=== PATIENT | male | born 1950 | race Asian ===

== ENCOUNTER 2021-11-14 06:55 | Inpatient (IN) | payer BC, OTHER ==
[~2021-11-14] VITALS: Ht 170.2 cm; Wt 64.9 kg
[2021-11-14] MEDS ORDERED: VANCOMYCIN 1 GM in IV D5W 250 ML IV ONE (08:00)
[2021-11-14] MEDS ORDERED: CEFEPIME 1 GM in IV D5W 50 ML IV ONE (08:00)
[2021-11-14] MEDS ORDERED: IV NS 0.9% 1,000 ML IV ONE ×2 (08:00→09:30)
[2021-11-14 08:01] LABS: BASOPHILS # (AUTO) 0.1 K/uL (0.0-0.2); BASOPHILS % (AUTO) 0.4 % (0.0-2.0); EOSINOPHILS % (AUTO) 5.7 % (0.0-6.0); HEMATOCRIT 35 % (39-51); HEMOGLOBIN 11.8 g/dL (13.5-17.5); LYMPHOCYTES # (AUTO) 0.9 K/uL (0.8-4.8); LYMPHOCYTES % (AUTO) 7.6 % (20.0-44.0); MEAN CORPUSCULAR HGB CONC 34 g/dl (31.0-36.0); MEAN CORPUSCULAR VOLUME 84 fL (80-96); MONOCYTES # (AUTO) 1.5 K/uL (0.1-1.30); MONOCYTES % (AUTO) 11.9 % (2.0-12.0); NEUTROPHILS # (AUTO) 9.2 K/uL (1.8-8.9); NEUTROPHILS % (AUTO) 74.4 % (43.0-81.0); PLATELET COUNT (AUTO) 85 K/uL (150-450); RED BLOOD CELL COUNT(AUTO) 4.17 MIL/uL (4.5-6.0); WHITE BLOOD COUNT (AUTO) 12.3 K/uL (4.3-11.0)
[2021-11-14 08:10] LABS: CALCIUM, SERUM 8.9 mg/dL (8.5-10.1); CARBON DIOXIDE 23 mmol/L (21-32); CHLORIDE 97 mmol/L (98-107); CREATININE 2.7 mg/dL (0.6-1.3); GLUCOSE 136 mg/dL (74-106); POTASSIUM 3.9 mmol/L (3.5-5.1); SODIUM SERUM 132 mmol/L (136-145); UREA NITROGEN, BLOOD 42 mg/dL (7-18)
[2021-11-14 08:24] LABS: ALANINE AMINOTRANSFERASE 68 U/L (12-78); ALBUMIN 3.2 g/dL (3.4-5.0); ALKALINE PHOSPHATASE 86 U/L (46-116); ASPARTATE AMINOTRANSFERASE 44 U/L (15-37); BILIRUBIN,DIRECT 0.2 mg/dL (0.0-0.2); BILIRUBIN,TOTAL 0.5 mg/dL (0.2-1.0); TOTAL PROTEIN, SERUM 7.2 g/dL (6.4-8.2)
--- NOTE | 2021-11-14 08:48 | NUR ---
IV LINE ESTABLISHED ON RAC #20, BLOOD DRAWN AND SENT TO LAB
--- NOTE | 2021-11-14 08:50 | NUR ---
URINE SAMPLE COLLECTED.
[2021-11-14] MEDS ORDERED: LEVO50TA8 PO (09:04)
[2021-11-14] MEDS ORDERED: ASPI-1420 PO (09:04)
[2021-11-14] MEDS ORDERED: METO25TA3 PO (09:04)
[2021-11-14] MEDS ORDERED: EZET10TA32 PO (09:04)
[2021-11-14] MEDS ORDERED: VALS1TAB8 PO (09:04)
[2021-11-14] MEDS ORDERED: METF-440 PO (09:04)
[2021-11-14] MEDS ORDERED: ROSU40TA23 PO (09:04)
[2021-11-14] MEDS ORDERED: FAMO20TA8 PO (09:04)
--- NOTE | 2021-11-14 09:20 | NUR ---
SPOKE W/ LAB, URINE SAMPLE NOT ENOUGH; PT UNABLE TO PROVIDE URINE AT THIS TIME.
[2021-11-14 10:19] LABS: CREATININE 2.5 mg/dL (0.6-1.3); POTASSIUM 3.6 mmol/L (3.5-5.1)
--- NOTE | 2021-11-14 10:52 | NUR ---
COVID SWAB AND URINE SAMPLE COLLECTED AND SENT TO LAB
[2021-11-14 11:47] LABS: BAND % (MANUAL) 1 % (0.0-5.0); EOSINOPHILS % (MANUAL) 3 % (0-4); LYMPHOCYTES % (MANUAL) 7 % (16-48); MONOCYTES % (MANUAL) 10 % (0-11.0); NEUTROPHILS % (MANUAL) 79 (42-76)
[2021-11-14 12:02] LABS: BILIRUBIN,URINE NEGATIVE (NEGATIVE); COLOR,URINE YELLOW (YELLOW); LEUKOCYTE ESTERASE ,URINE NEGATIVE (NEGATIVE); NITRITE, URINE NEGATIVE (NEGATIVE); PROTEIN,URINE NEGATIVE (NEGATIVE); UGLUCOSE NEGATIVE (NEGATIVE); UROBILINOGEN,URINE 0.2 EU/dL (0.2)
--- NOTE | 2021-11-14 12:48 | NUR ---
AYSHA FROM [facility]. GAVE VERBAL AUTHORIZATION.
[2021-11-14 13:08] LABS: BACTERIA,URINE Few /HPF (None Seen); COARSE GRANULAR CASTS,URINE Rare /LPF (None Seen); RBC,URINE 0-2 /HPF (0-2); SQUAMOUS EPITHELIAL CELL,UR Few /HPF (None Seen); WBC,URINE 0-2 /HPF (0-3)
[2021-11-14] MEDS ORDERED: MAGNESIUM HYDROXIDE 30 ML UDC PO PRN (13:30)
[2021-11-14] MEDS ORDERED: ONDANSETRON HCL/PF 4 MG/2 ML VIAL IVP PRN (13:30)
[2021-11-14] MEDS ORDERED: ASPIRIN 81 MG TAB.CHEW PO SCH (13:30)
[2021-11-14] MEDS ORDERED: ZOLPIDEM TARTRATE 5 MG TABLET PO PRN (13:30)
[2021-11-14] MEDS ORDERED: FAMOTIDINE (20 MG) 20 MG TABLET PO PRN (13:30)
[2021-11-14] MEDS ORDERED: Z GUARD REMEDY 4 OZ OINT TP PRN (13:30)
[2021-11-14] MEDS ORDERED: MAG HYDROX/AL HYDROX/SIMETH 30 ML UDC PO PRN (13:30)
[2021-11-14] MEDS ORDERED: DEXTROSE 50%-WATER 50 ML DISP.SYRIN IV PRN (13:30)
--- NOTE | 2021-11-14 13:56 | NUR ---
ROOM 111-1
--- NOTE | 2021-11-14 14:04 | NUR ---
PT REPORT GIVEN TO SHERRI SPRINGER; PATRICIA IS THE NURSE ASSIGNED TO PT
--- NOTE | 2021-11-14 15:00 | NUR ---
EXECUTIVE VP OPENING NOTE RECEIVED PATIENT FROM ER VIA DISHARDMITRY ACCOMPANIED BY 2 ER STAFF. ON ROOM AIR, BREATHING UNLABORED AND NOT IN ANY FORM OF DISTRESS. PATIENT WAS ORIENTED TO ROOM AND HOSPITAL POLICIES. INITIAL ASSESSMENTS DONE AND DOCUMENTED ACCORDINGLY. BED IS LOCKED IN LOWEST POSITION, 3 SIDE RAILS UP, CALL LIGHT WITHIN REACH. WILL CONTINUE TO MONITOR.
--- NOTE | 2021-11-14 15:09 | NUR ---
PT TRANSFERRED TO 111-1 VIA [facility] ACLS PROTOCOL. WARM HANDOFF GIVEN TO SHERRI GOMEZ
[2021-11-14 16:00] VITALS: BP 128/59
[2021-11-14] MEDS: BLOOD SUGAR DIAGNOSTIC 1 EACH STRIP VI SCH ×2 (17:43→21:37)
[2021-11-14] MEDS: INSULIN REGULAR, HUMAN 100 UNIT/ML 3 ML VIAL SQ PRN (17:46)
--- NOTE | 2021-11-14 19:01 | NUR ---
RN CLOSING NOTE PATIENT REMAINED STABLE THROUGHOUT SHIFT. TOLERATES ROOM AIR. DENIES CHEST PAIN, BREATHING UNLABORED AND NOT IN ANY FORM OF DISTRESS. RIGHT ANTECUBITAL IV REMAINS INTACT AND PATENT. ABLE TO MAKE NEEDS KNOWN. ALL HOSPITAL PRECAUTIONS IN PLACE. WILL ENDORSE TO IT CONSULTING MANAGER NURSE.
--- NOTE | 2021-11-14 19:42 | NUR ---
RN OPENING NOTES RECEIVED PT IN BED, AWAKE, WATCHING TV. AOx4, ABLE TO MAKE NEEDS KNOWN. ON RA AND TOLERATING WELL. NO SOB NOTED. NO S/SX OF RESPIRATORY DISTRESS NOTED. TELE MONITOR DETECTS V-PACING WITH RATE OF 71. IV ACCESS IN RAC #20G. IV IS INTACT, PATENT, AND FLUSHING WELL. SAFETY PRECAUTIONS IN PLACE: BED IN LOWEST, LOCKED POSITION, SIDERAILS UPx2, AND BRAKES ON. TABLE AND CALL LIGHT WITHIN REACH. ALL NEEDS MET AT THIS TIME.
[2021-11-14 20:00] VITALS: BP 98/65
[2021-11-14] MEDS: ACETAMINOPHEN 325 MG TABLET PO PRN (20:47)
[2021-11-14] MEDS: IV NS 0.9% 1,000 ML IV PRN (20:47)
--- NOTE | 2021-11-14 21:00 | NUR ---
RN NOTES PATIENT HAS TEMPERATURE OF 101.1. ADMINISTERED TYLENOL AND PROVIDED ICE BAGS.
[2021-11-14] MEDS: ATORVASTATIN 10 MG TABLET PO SCH (21:34)
[2021-11-14] MEDS: *INSULIN REGULAR(HUMULIN R)HUM 100 UNIT/ML VIAL SQ PRN (21:37)
[2021-11-15] VITALS: BP 93/52
--- NOTE | 2021-11-15 06:39 | NUR ---
RN CLOSING NOTES PT IN BED, ASLEEP, AWAKENS TO VERBAL STIMULI. AOx4, ABLE TO MAKE NEEDS KNOWN. ON RA AND TOLERATING WELL. NO SOB NOTED. NO S/SX OF RESPIRATORY DISTRESS NOTED. TELE MONITOR DETECTS V-PACING WITH RATE OF 71. IV ACCESS IN RAC #20G RUNNING NS @ 75 ML/HR. ALL ORDERS CARRIED OUT. ALL NEEDS MET. PT KEPT CLEAN AND DRY. SAFETY PRECAUTIONS IN PLACE: BED IN LOWEST, LOCKED POSITION, SIDERAILS UPx2, AND BRAKES ON. TABLE AND CALL LIGHT WITHIN REACH. WILL ENDORSE TO ONCOMING SHIFT FOR MARCO.
[2021-11-15 06:42] LABS: BASOPHILS % (AUTO) 0.3 % (0.0-2.0); EOSINOPHILS % (AUTO) 7.6 % (0.0-6.0); HEMATOCRIT 35 % (39-51); HEMOGLOBIN 11.8 g/dL (13.5-17.5); LYMPHOCYTES # (AUTO) 1.2 K/uL (0.8-4.8); LYMPHOCYTES % (AUTO) 11.4 % (20.0-44.0); MEAN CORPUSCULAR HGB CONC 34 g/dl (31.0-36.0); MEAN CORPUSCULAR VOLUME 85 fL (80-96); MONOCYTES # (AUTO) 1.4 K/uL (0.1-1.30); NEUTROPHILS # (AUTO) 7.3 K/uL (1.8-8.9); NEUTROPHILS % (AUTO) 67.7 % (43.0-81.0); PLATELET COUNT (AUTO) 96 K/uL (150-450); RED BLOOD CELL COUNT(AUTO) 4.12 MIL/uL (4.5-6.0); WHITE BLOOD COUNT (AUTO) 10.8 K/uL (4.3-11.0)
[2021-11-15 07:14] LABS: CALCIUM, SERUM 8.8 mg/dL (8.5-10.1); MAGNESIUM 2.2 mg/dL (1.8-2.4); PHOSPHORUS 2.6 mg/dL (2.5-4.9); POTASSIUM 3.5 mmol/L (3.5-5.1)
--- NOTE | 2021-11-15 07:20 | NUR ---
RN OPENING NOTES PATIENT RECEIVED IN BED. PATIENT IS VERBAL RESPONSIVE. PATIENT IS ALERT AND ORIENTED X4.PATIENT IS ON TELE MONITOR CURRENTLY VPACING. PATIENT HAS IV ACCESS ON RIGHT AC 20 GUAGE RUNNING NORMAL SALINE AT 75 ML/HR. NO SIGNS OF PAIN OR DISCOMFORT.PATIENT IS ON ROOM AIR. ALL SAFETY MEASURES IN PLACE, BED IN LOWEST, LOCKED POSITION, SIDERAILS UPx2, AND BRAKES ON. TABLE AND CALL LIGHT WITHIN REACH.
[2021-11-15] MEDS: BLOOD SUGAR DIAGNOSTIC 1 EACH STRIP VI SCH ×4 (07:53→21:49)
[2021-11-15] MEDS: CEFEPIME 2 GM in IV D5W 100 ML IV SCH (08:04)
[2021-11-15 08:36] VITALS: BP 99/63
--- NOTE | 2021-11-15 09:00 | NUR ---
DR. FRAIRE MADE ROUNDS. ASKED DR. FRAIRE IF OKAY TO CONTINUE ASPIRIN AND ZETIA. SAID OK TO GIVE
[2021-11-15] MEDS: ASPIRIN EC 81 MG TABLET.DR PO SCH (09:03)
[2021-11-15] MEDS: EZETIMIBE 10 MG TABLET PO SCH (09:03)
[2021-11-15 12:00] VITALS: BP 102/62
[2021-11-15] MEDS: INSULIN REGULAR, HUMAN 100 UNIT/ML 3 ML VIAL SQ PRN (12:17)
[2021-11-15] MEDS: IV NS 0.9% 1,000 ML IV PRN (14:08)
[2021-11-15 15:28] LABS: EOSINOPHILS % (MANUAL) 10 % (0-4); LYMPHOCYTES % (MANUAL) 10 % (16-48); MONOCYTES % (MANUAL) 10 % (0-11.0); NEUTROPHILS % (MANUAL) 70 (42-76)
[2021-11-15 16:00] VITALS: BP 108/69
[2021-11-15] MEDS: ACETAMINOPHEN 325 MG TABLET PO PRN (17:14)
--- NOTE | 2021-11-15 18:30 | NUR ---
PROVIDED UPDATES TO PATIENT .
--- NOTE | 2021-11-15 19:30 | NUR ---
EXPLORATION MANAGER OPENING NOTES RECEIVED PT AWAKE IN BED, A/O x4, ABLE TO MAKE NEEDS KNOWN. ON RA AND TOLERATING WELL. NO SOB NOTED. NO S/SX OF RESPIRATORY DISTRESS NOTED. PT ON CONNECTED TO TELE MONITOR DETECTS V-PACING WITH RATE OF 80. IV ACCESS IN RAC #20G INTACT, PATENT, AND FLUSHING WELL RUNNING NS AT 75 ML/HR. SAFETY PRECAUTIONS IN PLACE: BED IN LOWEST AND LOCKED POSITION, SIDERAILS UPx2. TABLE AND CALL LIGHT WITHIN REACH. FAMILY AT BEDSIDE, WILL CONTINUE TO MONITOR THROUGHOUT THE SHIFT.
--- NOTE | 2021-11-15 19:40 | NUR ---
RN CLOSING NOTE PATIENT IN BED. PATIENT IS VERBAL RESPONSIVE. PATIENT IS ALERT AND ORIENTED X4.PATINET HAS LANGUAGE BARRIER. PATIENT IS ON TELE MONITOR PATIENT HAS IV ACCESS ON RIGHT AC 20 GUAGE RUNNING NORMAL SALINE AT 75 ML/HR. NO SIGNS OF PAIN OR DISCOMFORT.PATIENT IS ON ROOM AIR. ALL NEEDS MET. PATIENT IS AMBULATORY. ALL SAFETY MEASURES IN PLACE, BED IN LOWEST, LOCKED POSITION, SIDERAILS UPx2, AND BRAKES ON. TABLE AND CALL LIGHT WITHIN REACH.
[2021-11-15 20:00] VITALS: BP 109/54
[2021-11-15] MEDS: ATORVASTATIN 10 MG TABLET PO SCH (21:49)
--- NOTE | 2021-11-15 22:00 | NUR ---
RN NOTE BS CHECKED AT 150 MG/DL, 2 UNITS OF INSULIN GIVEN PER SLIDING SCALE. WILL CONT TO MONITOR.
[2021-11-15] MEDS: *INSULIN REGULAR(HUMULIN R)HUM 100 UNIT/ML VIAL SQ PRN (22:24)
[2021-11-16] VITALS: BP 125/69
[2021-11-16] MEDS: ACETAMINOPHEN 325 MG TABLET PO PRN (00:07)
--- NOTE | 2021-11-16 00:07 | NUR ---
RN NOTE NOTED PT HAVING FEVER AT 100.3. TYLENOL GIVEN MD ORDER, COOLING MEASURES PROVIDED, WILL CONT TO MONITOR.
--- NOTE | 2021-11-16 01:00 | NUR ---
RN NOTE PT TEMPERATURE GOES DOWN AT 99.0. PT SLEEPING BUT EASILY AROUSABLE TO TOUCH AND VOICE.
[2021-11-16] MEDS: IV NS 0.9% 1,000 ML IV PRN (03:59)
[2021-11-16 04:00] VITALS: BP 121/65
--- NOTE | 2021-11-16 06:41 | NUR ---
BUTTER PRODUCTION SUPERVISOR CLOSING NOTES PT AWAKE IN BED, A/O x4, ABLE TO MAKE NEEDS KNOWN. ON RA TOLERATING WELL SATING 99%. NO SOB NOTED. NO S/SX OF RESPIRATORY DISTRESS NOTED. PT ON CONNECTED TO TELE MONITOR DETECTS V-PACING WITH RATE OF 81. IV ACCESS IN RAC #20G INTACT, PATENT, AND FLUSHING WELL RUNNING NS AT 75 ML/HR. ALL DUE MEDS GIVEN, KEPT DRY AND CLEAN, SAFETY PRECAUTIONS IN PLACE: BED IN LOWEST AND LOCKED POSITION, SIDERAILS UPx2. TABLE AND CALL LIGHT WITHIN REACH. WILL ENDORSE TO AM SHIFT NURSE FOR CONTINUITY OF CARE.
[2021-11-16 07:32] LABS: POTASSIUM 3.9 mmol/L (3.5-5.1)
--- NOTE | 2021-11-16 08:00 | NUR ---
EPIC KALEIDOSCOPE ANALYST NOTES PT AWAKE IN BED, A/O x4, ABLE TO MAKE NEEDS KNOWN. ON RA TOLERATING WELL SATING 97%. NO SOB NOTED. NO S/SX OF RESPIRATORY DISTRESS NOTED. PT ON CONNECTED TO TELE MONITOR AV PACING HR 80 ,IV ACCESS IN RAC #20G INTACT, PATENT, AND FLUSHING WELL RUNNING NS AT 75 ML/HR. ALL DUE ME KEPT DRY AND CLEAN, SAFETY PRECAUTIONS IN PLACE, BED IN LOWEST AND LOCKED POSITION CALL LIGHT WITHIN REACH. WILL CON TO MONITOR SEEN BY DR FRAIRE, WILL F\U
[2021-11-16] MEDS: CEFEPIME 2 GM in IV D5W 100 ML IV SCH (08:41)
[2021-11-16] MEDS: EZETIMIBE 10 MG TABLET PO SCH (08:41)
[2021-11-16] MEDS: ASPIRIN EC 81 MG TABLET.DR PO SCH (08:43)
[2021-11-16] MEDS: BLOOD SUGAR DIAGNOSTIC 1 EACH STRIP VI SCH ×4 (08:43→21:20)
[2021-11-16 09:43] VITALS: BP 119/71
[2021-11-16] MEDS ORDERED: LEVO500T90 PO (10:06)
[2021-11-16] MEDS: INSULIN REGULAR, HUMAN 100 UNIT/ML 3 ML VIAL SQ PRN (11:35)
[2021-11-16 12:00] VITALS: BP 102/65
[2021-11-16] MEDS: IV NS 0.9% 1,000 ML IV SCH (12:40)
--- NOTE | 2021-11-16 13:00 | NUR ---
telephoner note \ per dr cleary and dr beyer ok to do angiogram tomorrow , dr jett notified ok to hold discharge
--- NOTE | 2021-11-16 13:30 | NUR ---
telesales supervisor note spoke with dr cleary sales representative meats asked about angiogram for tomorrow stated ok to leave patient tonight dont discharge ,he will do procedure ,asked about orders and consent stated that will place order in computer latter on ,will f\u
[2021-11-16 16:00] VITALS: BP 100/65
--- NOTE | 2021-11-16 16:00 | NUR ---
telepathist note resting comfortably, all needs attended , at bedside ,will cont to monitor closely
--- NOTE | 2021-11-16 18:21 | NUR ---
ATTENDANT HONOR BAR NOTE PATIENT IN BED, ALERT ORIENTED, AT BEDSIDE ,ON IVF ORDERED ,RT AC HL INTACT AND FLUSHED WELL ,B ABLE TO GO TO BR ABLE TO URINATE, ON RA NO SOB NOTED , ON TELE MONITOR AV PACING HR 80 , ALL NEEDS ATTENDED ,WILL CONT TO MONITOR
--- NOTE | 2021-11-16 19:37 | NUR ---
SOLDERING INSPECTOR OPENING NOTES RECEIVED PT AWAKE IN BED, A/O x4, ABLE TO MAKE NEEDS KNOWN. ON RA AND TOLERATING WELL. NO SOB NOTED. NO S/SX OF RESPIRATORY DISTRESS NOTED. PT ON CONNECTED TO TELE MONITOR DETECTS V-PACING WITH RATE OF 80. IV ACCESS IN RAC #20G INTACT, PATENT, AND FLUSHING WELL RUNNING NS AT 75 ML/HR. SAFETY PRECAUTIONS IN PLACE: BED IN LOWEST AND LOCKED POSITION, SIDERAILS UPx2. TABLE AND CALL LIGHT WITHIN REACH. WILL CONTINUE TO MONITOR THROUGHOUT THE SHIFT.
[2021-11-16 20:00] VITALS: BP 117/61
--- NOTE | 2021-11-16 20:15 | NUR ---
RN NOTE SPOKE TO DR. GOMEZ OVER THE PHONE. PT SCHEDULED SURGERY TOMORROW AT 0800 AM FOR LEFT HEART CATHETERIZATION. OBTAINED CONSENT AND SIGNED BY PATIENT AT BEDSIDE. NPO STATUS POST MN.
[2021-11-16] MEDS: ATORVASTATIN 10 MG TABLET PO SCH (21:20)
--- NOTE | 2021-11-16 22:00 | NUR ---
RN NOTE BS CHECKED AT 121 MG/DL, NO COVERAGE GIVEN PER SLIDING SCALE. WILL CONT TO MONITOR.
[2021-11-17] VITALS: BP 120/65
[2021-11-17] MEDS: IV NS 0.9% 1,000 ML IV SCH ×2 (03:27→10:24)
[2021-11-17 04:00] VITALS: BP 132/60
--- NOTE | 2021-11-17 05:45 | NUR ---
RN NOTE INSERTED NEW IV ACCESS ON L WRIST #20G, INTACT AND PATENT. PT TOLERATED WELL.
[2021-11-17 06:05] LABS: ALBUMIN 2.7 g/dL (3.4-5.0); BILIRUBIN,TOTAL 0.7 mg/dL (0.2-1.0); CALCIUM, SERUM 8.5 mg/dL (8.5-10.1); CREATININE 1.7 mg/dL (0.6-1.3); POTASSIUM 3.7 mmol/L (3.5-5.1); TOTAL PROTEIN, SERUM 7.1 g/dL (6.4-8.2)
--- NOTE | 2021-11-17 06:29 | NUR ---
SAS PROGRAMMER REMOTE CLOSING NOTES PT AWAKE IN BED, A/O x4, ABLE TO MAKE NEEDS KNOWN. ON RA TOLERATING WELL SATING 99%. NO SOB NOTED. NO S/SX OF RESPIRATORY DISTRESS NOTED. PT ON CONNECTED TO TELE MONITOR DETECTS V-PACING WITH RATE OF 74. IV ACCESS IN L WRIST #20 G AND RAC #20G INTACT, PATENT, AND FLUSHING WELL RUNNING NS AT 75 ML/HR. ALL DUE MEDS GIVEN, KEPT DRY AND CLEAN, ON NPO STATUS FOR AM SURGERY, SAFETY PRECAUTIONS IN PLACE: BED IN LOWEST AND LOCKED POSITION, SIDERAILS UPx2. TABLE AND CALL LIGHT WITHIN REACH. WILL ENDORSE TO AM SHIFT NURSE FOR CONTINUITY OF CARE.
[2021-11-17] MEDS ORDERED: IV NS 0.9% 1,000 ML ONE (07:00)
[2021-11-17] MEDS ORDERED: NITROGLYCERIN IN 5 % DEXTROSE 250 ML IV ONE (07:01)
[2021-11-17] MEDS ORDERED: IV SET PRIMARY PUMP SET 1 EA INFUS.SET MC ONE (07:01)
[2021-11-17] MEDS ORDERED: IODIXANOL 150 ML IV ONE (07:01)
[2021-11-17] MEDS ORDERED: LIDOCAINE HCL/PF 1% 30 ML SDV ONE (07:01)
[2021-11-17] MEDS ORDERED: FENTANYL PF 100MCG/2ML AMPUL ONE (07:25)
[2021-11-17] MEDS ORDERED: MIDAZOLAM HCL 2 MG/2ML VIAL ONE (07:25)
--- NOTE | 2021-11-17 07:41 | NUR ---
RN NOTE PT PICKED UP FOR REHAB LIAISON PROCEDURE.
[2021-11-17] MEDS ORDERED: IODIXANOL 320MG/ML 50 ML IV ONE (08:20)
[2021-11-17] MEDS ORDERED: HEPARIN SODIUM, PORCINE 1,000 UNIT/ML VIAL ONE (08:22)
[2021-11-17] MEDS ORDERED: HEPARIN SODIUM, PORCINE 5000 UNITS/1 ML VIAL ONE (08:22)
[2021-11-17] MEDS ORDERED: PHENYLEPHRINE 10 MG/ML VIAL ONE (08:24)
[2021-11-17] MEDS ORDERED: TICAGRELOR 90 MG TABLET PO ONE (08:29)
[2021-11-17 09:00] VITALS: BP 127/61
[2021-11-17] MEDS: TICAGRELOR 90 MG TABLET PO SCH ×2 (09:00→16:47)
--- NOTE | 2021-11-17 09:08 | NUR ---
rn notes received patient from dental laboratory supervisor at this time. patient awake, a/o x4, refused pain, room air. patient has coronary artery segment mLAD. TR band intact on RFA , no bleeding noted. pulse is present. patient using urinal. iv access on left hand started ns@75 ml/hr, bs-127mg/dl, due medication administered. vss. call light within to reach,. will follow up.
[2021-11-17] MEDS: BLOOD SUGAR DIAGNOSTIC 1 EACH STRIP VI SCH ×4 (09:45→22:26)
[2021-11-17] MEDS: CEFEPIME 2 GM in IV D5W 100 ML IV SCH (09:49)
[2021-11-17] MEDS: ASPIRIN EC 81 MG TABLET.DR PO SCH (09:52)
[2021-11-17] MEDS: EZETIMIBE 10 MG TABLET PO SCH (09:52)
[2021-11-17] MEDS: METOPROLOL SUCCINATE 25 MG TAB.SR.24H PO SCH (10:34)
[2021-11-17] MEDS ORDERED: FLUCONAZOLE IN NS 100 MG in PREMIX 1 EA IV SCH ×2 (11:00)
[2021-11-17 12:00] VITALS: BP 132/66
--- NOTE | 2021-11-17 12:00 | NUR ---
rn notes bs-118mg/dl, patient tolerated lunch well, will follow up.
[2021-11-17] MEDS: FLUCONAZOLE IN NS 200 MG in PREMIX 1 EA IV SCH ×2 (13:36)
--- NOTE | 2021-11-17 15:27 | NUR ---
RN NOTES STARTED REMOVAL OF AIR FROM TR BAND 3ML. PULSE IS PRESENT, NO BLEEDING. 1540- REMOVED 3ML, 1555--REMOVED 4ML OF AIR, NO BLEEDING , PULSE IS PRESENT, 1610-REMOVED LAST 4 ML OF AIR. PULSE IS PRESENT. NO BLEEDING. 1630-REMOVED TR BAND APPLIED TRANSDERMAL DRESSING, AND PRESSURE , PULSE IS PRESENT, CALL LIGHT WITHIN TO REACH. WILL FOLLOW UP.
[2021-11-17 16:00] VITALS: BP 114/73
--- NOTE | 2021-11-17 17:00 | NUR ---
RN NOTES BS-131 MG/DL COVERAGE GIVEN, ALSO ADMINISTERED SCHEDULED MEDICATION. PATIENT TOLERATED DINNER WELL, USING URINAL. ASSIST SEATING EDGE OF THE BED. NEXT TO THE BED.
--- NOTE | 2021-11-17 17:00 | NUR ---
rn notes held Queenie at this time per Dr Zhang patient will start Brilinta 11/18/21.
[2021-11-17] MEDS: INSULIN REGULAR, HUMAN 100 UNIT/ML 3 ML VIAL SQ PRN (18:00)
--- NOTE | 2021-11-17 18:00 | NUR ---
RN NOTES TRANSFERRED PATIENT BACK TO THE [facility] ROOM 111 BED 1 WITHIN STABLE CONDITION. BEDSIDE REPORT GIVEN HSERRI LARA.
--- NOTE | 2021-11-17 19:06 | NUR ---
RN NOTE PT RECEIVED FROM ICU. NOT IN DISTRESS. V/S STABLE. POST BUCKLE COVERER PROCEDURE. R RADIAL DRESSING IN PLACE. NO SS OF BLEEDING.
--- NOTE | 2021-11-17 19:30 | NUR ---
RN NOTE Patient in bed, AO X 4, Mario speaking but understands Lao, in no acute distress, saturation at 99% on room air, AV paced on the monitor, HR is 72. IV line at RAC 20g, and L wrist 20g patent and flushing well with NS infusing at 75 ml/hr. Dressing at R wrist dry and intact, no bleeding noted. Safety measures in place, bed is locked and at lowest position, bed alarm is on, side rails up x 2, call light within reach of patient. Will cont to monitor and reassess.
[2021-11-17 20:00] VITALS: BP 120/76
[2021-11-17] MEDS: ATORVASTATIN 10 MG TABLET PO SCH (22:19)
[2021-11-18] VITALS: BP 116/62
[2021-11-18 04:00] VITALS: BP 119/67
[2021-11-18] MEDS: IV NS 0.9% 1,000 ML IV SCH ×2 (04:16→17:19)
[2021-11-18 08:00] VITALS: BP 126/71
--- NOTE | 2021-11-18 08:12 | NUR ---
RN OPENING NOTE PATIENT RECEIVED IN BED, AO X 4, ABLE TO RESPONDS ALL STIMULI. IN NO ACUTE DISTRESS NOTED. RESPIRATORY EVEN AND UNLABORED ON ROOM AIR. SKIN IS WARM TO TOUCH, KEEP CLEAN/DRY. KEPT ELEVATED HOB FOR ENSURE AIRWAY AND ASPIRATION PRECAUTION, ALSO LOWEST POSITION OF THE BED, S/R UP X 2, BED ALARM IS ON AT ALL THE TIMES. ALL SAFETY PRECAUTION APPLIED. CALL LIGHT WITHIN REACH, WILL CONTINUE TO MONITOR.
[2021-11-18] MEDS: CEFEPIME 2 GM in IV D5W 100 ML IV SCH (08:36)
[2021-11-18] MEDS: BLOOD SUGAR DIAGNOSTIC 1 EACH STRIP VI SCH ×4 (08:36→21:05)
[2021-11-18] MEDS: ASPIRIN EC 81 MG TABLET.DR PO SCH (08:36)
[2021-11-18] MEDS: TICAGRELOR 90 MG TABLET PO SCH ×2 (08:38→17:18)
[2021-11-18] MEDS: EZETIMIBE 10 MG TABLET PO SCH (08:40)
[2021-11-18] MEDS: METOPROLOL SUCCINATE 25 MG TAB.SR.24H PO SCH (09:41)
[2021-11-18] MEDS: GLUCERNA SHAKE 237 ML CAN PO SCH (09:55)
[2021-11-18 11:28] LABS: BASOPHILS % (AUTO) 0.2 % (0.0-2.0); EOSINOPHILS % (AUTO) 5.8 % (0.0-6.0); HEMATOCRIT 33 % (39-51); HEMOGLOBIN 11.2 g/dL (13.5-17.5); LYMPHOCYTES # (AUTO) 1.6 K/uL (0.8-4.8); LYMPHOCYTES % (AUTO) 11.8 % (20.0-44.0); MEAN CORPUSCULAR HGB CONC 34 g/dl (31.0-36.0); MEAN CORPUSCULAR VOLUME 85 fL (80-96); MONOCYTES # (AUTO) 1.4 K/uL (0.1-1.30); NEUTROPHILS # (AUTO) 9.8 K/uL (1.8-8.9); NEUTROPHILS % (AUTO) 72.2 % (43.0-81.0); PLATELET COUNT (AUTO) 133 K/uL (150-450); RED BLOOD CELL COUNT(AUTO) 3.93 MIL/uL (4.5-6.0); WHITE BLOOD COUNT (AUTO) 13.6 K/uL (4.3-11.0)
[2021-11-18 12:00] VITALS: BP 110/68
[2021-11-18] MEDS: INSULIN REGULAR, HUMAN 100 UNIT/ML 3 ML VIAL SQ PRN ×2 (12:44→21:08)
[2021-11-18] MEDS: FLUCONAZOLE IN NS 200 MG in PREMIX 1 EA IV SCH ×2 (12:45)
[2021-11-18 16:00] VITALS: BP 118/70
--- NOTE | 2021-11-18 18:50 | NUR ---
RN CLOSING NOTE PATIENT IN BED RESTING. IN NO ACUTE DISTRESS NOTED. RESPIRATORY EVEN AND UNLABORED ON ROOM AIR. SKIN IS WARM TO TOUCH, KEEP CLEAN/DRY, INTACT IV LINE. SPOKE WITH AND REGARDING MEDICATION BRILIANTA, WHO WILL EVENTS INTERN MEDICATION TO THE PHARMACY. KEPT ELEVATED HOB FOR ENSURE AIRWAY AND ASPIRATION PRECAUTION. BED IN LOWEST POSITION AND LOCKED. BED ALARM IS ON AT ALL THE TIMES. ALL SAFETY MEASURED IN PLACED. CALL LIGHT WITHIN REACH, WILL ENDORSED TO NEXT SHIFT.
--- NOTE | 2021-11-18 19:30 | NUR ---
PATIENT RECEIVED IN BED, AO X 4, ABLE TO MAKE NEEDS KNOWN. NO COMPLAINTS OF PAIN. IN NO ACUTE DISTRESS. RESPIRATORY EVEN AND UNLABORED ON ROOM AIR. SKIN IS WARM TO TOUCH, RAC G20 INTACT AND PATENT, LT WRIST G20 PATENT, INFUSING NS @ 75ML/HR. URINAL AT BEDSIDE. ALL SAFETY PRECAUTION APPLIED. BED ALARM ON, IN LOW POSITION, HOB SLIGHTLY ELEVATED, SIDERAILS UP X2. CALL LIGHT WITHIN REACH, WILL CONTINUE PLAN OF CARE.
[2021-11-18 20:00] VITALS: BP 110/66
[2021-11-18] MEDS: ACETAMINOPHEN 325 MG TABLET PO PRN (20:16)
--- NOTE | 2021-11-18 20:19 | NUR ---
TEMP 100.2. PRN TYLENOL GIVEN NEEDED AND ORDERED. WILL RECHECK TEMP AFTER AN HR.
[2021-11-18] MEDS: ATORVASTATIN 10 MG TABLET PO SCH (21:04)
[2021-11-19] VITALS: BP 117/71
[2021-11-19 04:00] VITALS: BP 140/82
[2021-11-19] MEDS: IV NS 0.9% 1,000 ML IV SCH ×2 (06:35→20:00)
--- NOTE | 2021-11-19 06:36 | NUR ---
PATIENT ASLEEP IN BED, AO X 4, ABLE TO MAKE NEEDS KNOWN. NO COMPLAINTS OF PAIN. Temp 98.3, ONE HOUR AFTER GIVING TYLENOL. HAD NORMAL TEMP UNTIL END OF SHIFT. NO ACUTE DISTRESS. RESPIRATORY EVEN AND UNLABORED ON ROOM AIR. SKIN IS WARM TO TOUCH, RAC G20 INTACT AND PATENT, LT WRIST G20 PATENT, INFUSING NS @ 75ML/HR. URINAL AT BEDSIDE. DUE MEDS AND PRN MEDS GIVEN ORDERED AND NEEDED. ALL SAFETY PRECAUTION SMAINTAINED. BED ALARM ON, IN LOW POSITION, HOB SLIGHTLY ELEVATED, SIDERAILS UP X2. CALL LIGHT WITHIN REACH, WILL ENDORSE TO NEXT NURSE ON DUTY FOR CONTINUITY OF CARE.
[2021-11-19 06:58] LABS: BASOPHILS # (AUTO) 0.1 K/uL (0.0-0.2); BASOPHILS % (AUTO) 0.5 % (0.0-2.0); EOSINOPHILS % (AUTO) 8.7 % (0.0-6.0); HEMATOCRIT 33 % (39-51); HEMOGLOBIN 10.9 g/dL (13.5-17.5); LYMPHOCYTES # (AUTO) 1.7 K/uL (0.8-4.8); LYMPHOCYTES % (AUTO) 12.5 % (20.0-44.0); MEAN CORPUSCULAR HGB CONC 34 g/dl (31.0-36.0); MEAN CORPUSCULAR VOLUME 84 fL (80-96); MONOCYTES # (AUTO) 1.3 K/uL (0.1-1.30); NEUTROPHILS # (AUTO) 9.2 K/uL (1.8-8.9); NEUTROPHILS % (AUTO) 68.3 % (43.0-81.0); PLATELET COUNT (AUTO) 157 K/uL (150-450); RED BLOOD CELL COUNT(AUTO) 3.86 MIL/uL (4.5-6.0); WHITE BLOOD COUNT (AUTO) 13.4 K/uL (4.3-11.0)
[2021-11-19 07:17] LABS: CALCIUM, SERUM 8.1 mg/dL (8.5-10.1); CREATININE 1.3 mg/dL (0.6-1.3); POTASSIUM 3.6 mmol/L (3.5-5.1)
[2021-11-19] MEDS: BLOOD SUGAR DIAGNOSTIC 1 EACH STRIP VI SCH ×4 (07:51→21:56)
[2021-11-19] MEDS: CEFEPIME 2 GM in IV D5W 100 ML IV SCH (07:51)
--- NOTE | 2021-11-19 07:56 | NUR ---
TIP PRINTER NOTE PATIENT IN BED, AO X 4, ABLE TO MAKE NEEDS KNOWN. NO COMPLAINTS OF PAIN. TeONE HOUR AFTER G. RESPIRATORY EVEN AND UNLABORED ON ROOM AIR. SKIN IS WARM TO TOUCH, RAC G20 INTACT AND PATENT, LT WRIST G20 PATENT, INFUSING NS @ 75ML/HR. ALL SAFETY PRECAUTION MAINTAINED. BED ALARM ON, IN LOW POSITION, HOB SLIGHTLY ELEVATED, SIDERAILS UP X2. CALL LIGHT WITHIN REACH, NO SOB NOTED AT THIS TIME, ON TELE MONITOR AV PACING HR 70 , WILL CONT TO [place], NO C\O CHEST PAIN
[2021-11-19 08:00] VITALS: BP 123/62
[2021-11-19] MEDS: ASPIRIN EC 81 MG TABLET.DR PO SCH (08:03)
[2021-11-19] MEDS: EZETIMIBE 10 MG TABLET PO SCH (08:03)
[2021-11-19] MEDS: TICAGRELOR 90 MG TABLET PO SCH ×2 (08:04→16:15)
[2021-11-19] MEDS: GLUCERNA SHAKE 237 ML CAN PO SCH (09:00)
[2021-11-19] MEDS: METOPROLOL SUCCINATE 25 MG TAB.SR.24H PO SCH (10:05)
--- NOTE | 2021-11-19 10:12 | NUR ---
CAPACITOR ASSEMBLER NOTE SEEN BY DR FRAIRE WITH POSSIBLE DISCHARGE WILL F\U
[2021-11-19 12:00] VITALS: BP 126/60
[2021-11-19] MEDS: INSULIN REGULAR, HUMAN 100 UNIT/ML 3 ML VIAL SQ PRN (12:17)
[2021-11-19] MEDS: FLUCONAZOLE IN NS 200 MG in PREMIX 1 EA IV SCH ×2 (12:21)
--- NOTE | 2021-11-19 12:38 | NUR ---
DRAG OUT WORKER NOTE NEW HL O RT HAND INSERTED ELIGIO 22 WITH GOOD BLOOD RETURN Addendum: 11/19/21 at 1240 by [facility] CARMEN RN CORRECTION HL PLACED ON LT HAND ELIGIO 22
--- NOTE | 2021-11-19 15:18 | NUR ---
radio television technical director note assisted to br, able to make bm. ,keep clean dry , all needs attended , at bedside
--- NOTE | 2021-11-19 15:19 | NUR ---
telephone installer note per immigration case worker jeanie Jerome will be covered with insurance ,spoke with and notified about this to come to pharmacy and car pick up driver medication
[2021-11-19 16:00] VITALS: BP 127/66
--- NOTE | 2021-11-19 17:45 | NUR ---
AIRCRAFT POWERPLANT REPAIRER NOTE UP ON CHAIR, HAVING DINER , NOT IN DISTRESS , ALL NEEDS ATTENDED
--- NOTE | 2021-11-19 18:19 | NUR ---
SHOVEL MECHANIC NOTE PATIENT IN BED , RESTING COMFORTABLY, ALL NEEDS ATTENDED , NO SOB NOTED AT THIS TIME, ON RA , ON TELE MONITOR AV PACING HR 70 , LT HAND HL INTACT AND FLUSHED WELL , ON IVF ORDERED , SAFETY MEASURE PROVIDED , CALL LIGHT WITHIN TEACH , NOT IN DISTRESS , WILL CONT TO MONITOR, AT BEDSIDE
[2021-11-19 20:00] VITALS: BP 130/59
--- NOTE | 2021-11-19 20:51 | NUR ---
VENDOR RELATIONSHIP MANAGER OPENING NOTE PT RECEIVED IN BED, ASLEEP BUT EASILY AROUSABLE, A&O X4, KAREN-SPEAKING, BUT IS ABLE TO SPEAK LITTLE NORWEGIAN, CALM, COOPERATIVE. PT IS ON RA WITH O2SAT OF 98%; NO S/S OF RESP DISTRESS, NO SOB OR COUGH, NON-LABORED AND EQUAL BREATHING. PT ATTACHED TO EXTERNAL MONITOR, SR WITH HR OF 76. IV ACCESS ON LEFT HAND 22G, INTACT AND PATENT, FLUSHES EASILY WITH NO RESISTANCE, NS INFUSING AT 75 ML/HR. BED IN LOWEST POSITION, CALL LIGHT WITHIN REACH, SIDE RAILS UP X2. WILL CONTINUE TO MONITOR THROUGHOUT THE NIGHT.
[2021-11-19] MEDS: ATORVASTATIN 10 MG TABLET PO SCH (21:42)
--- NOTE | 2021-11-19 21:55 | NUR ---
RN NOTE PT REQUESTED MEDICINE FOR SLEEP. OFFERED ZOLPIDEM, BUT PT DOES NOT WANT THE MEDICINE. AMBIEN 1 TAB 5 MG RETURNED TO [facility] WITH APPROPRIATE WITNESS.
[2021-11-19] MEDS: ACETAMINOPHEN 325 MG TABLET PO PRN (21:56)
--- NOTE | 2021-11-19 21:56 | NUR ---
RN NOTE PT REPORTS OF A 4/10 HEADACHE AND REQUESTS FOR TYLENOL. PT ADMINISTERED TYLENOL 650 MG. WILL MONITOR FOR EFFECTIVENESS.
[2021-11-20] VITALS: BP 99/63
[2021-11-20 04:00] VITALS: BP 130/82
--- NOTE | 2021-11-20 06:46 | NUR ---
PIN MAKER CLOSING NOTE PT REMAINS IN BED, AWAKE, A&O X4, CALM, COOPERATIVE. CONTINUES TO BE ON RA WITH O2SAT RANGING FROM 97%-99%; NO S/S OF RESP DISTRESS, NO SOB OR COUGH, NON-LABORED AND EQUAL BREATHING. ATTACHED TO EXTERNAL MONITOR, SR WITH HR RANGING FROM 65-76. LEFT HAND 22G, INTACT AND PATENT, FLUSHES EASILY WITH NO RESISTANCE, NS INFUSING AT 75 ML/HR. ALL DUE MEDS ADMINISTERED DURING THE NIGHT. BED IN LOWEST POSITION, CALL LIGHT WITHIN REACH, SIDE RAILS UP X2. WILL ENDORSE TO DAYSHIFT NURSE TO CONTINUE CARE.
--- NOTE | 2021-11-20 07:30 | NUR ---
REPAIR SERVICE CLERK OPENING NOTES: RECEIVED PATIENT IN BED, AWAKE, ALERT, ORIENTED X 3. NO RESPIRATORY DISTRESS NOTED. ON RA WITH OXYGEN SATURATION OF 100%. ON SR WITH HR OF 74 ON TELE MONITOR. PATIENT HAS IV ACCESS ON LEFT HAND # 22 WITH NS RUNNING AT 75 ML.HR, IV SITE PATENT, AND NO S/S INFILTRATION NOTED. BED LOCKED AND IN LOWEST POSITION. ALL SAFETY MEASURES IN PLACE. WILL CONTINUE TO MONITOR PATIENT THROUGHOUT SHIFT.
[2021-11-20 08:00] VITALS: BP 128/70
[2021-11-20] MEDS: BLOOD SUGAR DIAGNOSTIC 1 EACH STRIP VI SCH ×2 (08:07→12:21)
[2021-11-20] MEDS: ASPIRIN EC 81 MG TABLET.DR PO SCH (08:11)
[2021-11-20] MEDS ORDERED: FLUCONAZOLE (100 MG) 100 MG TABLET PO SCH (09:00)
[2021-11-20] MEDS: TICAGRELOR 90 MG TABLET PO SCH (09:22)
[2021-11-20] MEDS: EZETIMIBE 10 MG TABLET PO SCH (09:23)
[2021-11-20] MEDS: METOPROLOL SUCCINATE 25 MG TAB.SR.24H PO SCH (09:24)
[2021-11-20] MEDS: GLUCERNA SHAKE 237 ML CAN PO SCH (09:34)
[2021-11-20] MEDS: IV NS 0.9% 1,000 ML IV SCH (10:52)
[2021-11-20 12:00] VITALS: BP 139/81
[2021-11-20] MEDS ORDERED: FLUC100T8 PO (12:16)
[2021-11-20] MEDS ORDERED: TICA90TA PO (12:16)
--- NOTE | 2021-11-20 12:18 | NUR ---
RECEIVED A DISCHARGE ORDER FROM THE DOCTOR. INITIATED DISCHARGE PAPERWORK FOR THE PATIENT. PATIENT INFORMED.
--- NOTE | 2021-11-20 13:40 | NUR ---
FLORIAN'S LOUIE CAME BY TO LOCK AND DAM REPAIRER THE PATIENT. PATIENTS IV WAS DISCONNECTED, NOTED WITH HUB INTACT. ID BAND WAS TAKEN OFF WELL THE TELE MONITOR. PATIENT LEFT VIA WHEELCHAIR ACCOMPANIED BY KILO FABIAN AND WAS TAKEN TO THE LOBBY. PATIENT LEFT IN NO APPARENT DISTRESS.
== END 2021-11-20 14:10 | disposition home or self-care (01) | DRG 853 ==
LOC: ER 07:10 → TELE1 14:24 → ICU 11-17 09:18 → TELE1 11-17 18:32
PROVIDERS: ADMIT Internal Medicine; ATTEND Internal Medicine
PROC: 027035Z Dilation of Coronary Artery, One Artery with Two Drug-eluting Intraluminal Devices, Percutaneous Approach (ICD-10-PCS; principal; 2021-11-17)
PROC: 4A023N7 Measurement of Cardiac Sampling and Pressure, Left Heart, Percutaneous Approach (ICD-10-PCS; 2021-11-17)
PROC: B211YZZ Fluoroscopy of Multiple Coronary Arteries using Other Contrast (ICD-10-PCS; 2021-11-17)
DX: B37.7 Candidal sepsis (principal); E43 Unspecified severe protein-calorie malnutrition; I21.A1 Myocardial infarction type 2; N17.0 Acute kidney failure with tubular necrosis; E87.1 Hypo-osmolality and hyponatremia; B49 Unspecified mycosis; I25.5 Ischemic cardiomyopathy; Z20.822 Contact with and (suspected) exposure to COVID-19; I10 Essential (primary) hypertension; E78.5 Hyperlipidemia, unspecified; K21.9 Gastro-esophageal reflux disease without esophagitis; Z79.82 Long term (current) use of aspirin; E11.9 Type 2 diabetes mellitus without complications; Z79.84 Long term (current) use of oral hypoglycemic drugs; Z79.899 Other long term (current) drug therapy; Z95.0 Presence of cardiac pacemaker; E88.09 Other disorders of plasma-protein metabolism, not elsewhere classified; I25.10 Atherosclerotic heart disease of native coronary artery without angina pectoris; E86.1 Hypovolemia; E86.0 Dehydration; R00.1 Bradycardia, unspecified; K59.00 Constipation, unspecified; N20.0 Calculus of kidney
CPT/HCPCS: 36415; 71045-TC; 80048-TC; 80053-TC; 80076-TC; 81001; 82962-TC; 83605-TC; 83735-TC; 83880; 84100-TC; 84484-TC; 85025-TC; 85347; 85610-TC; 85730-TC; 87040-TC; 87081-TC; 87086-TC; 93307-TC; A4216; C1725; C1769; C1887; C9601; C9803; G0378; G0500; J0692; J1450; J1644; J1815; J2250; J2370; J3010; J3370; J3490; J7030; J7060; Q9967